=== PATIENT | female | born 1950 | race Caucasian/White ===

== ENCOUNTER 2016-12-16 17:54 | Observation (INO) | payer BC, OTHER ==
[~2016-12-16] VITALS: Ht 144.8 cm; Wt 62.2 kg
[~2016-12-16 17:54] MED LIST: ASCA500 PO; ASPI81TA28 PO; CALC-279 PO; CHOL100010 PO; CITA10TA4 PO; DIVA500T5 PO; LISI-461 PO; MAGN1CAP2 PO; MULT-506 PO; OMEGCAP2 PO; VITA400C15 PO; ZINC1TAB4 PO
--- NOTE | 2016-12-16 18:20 | DIAGNOSTIC IMAGING REPORT ---
CHEST ONE VIEW PORTABLE CLINICAL HISTORY: CHEST PAIN dyspnea COMPARISON STUDY: No previous studies for comparison. FINDINGS: The bones soft tissues and hemidiaphragms are normal. The cardiomediastinal silhouette is normal. The lungs are clear. The pulmonary vasculature is normal. IMPRESSION: Negative chest. Electronically signed by: Jacob Neumann M.D. 12/16/2016 6:18 PM Dictated Date/Time: 12/16/2016 6:18 PM
[2016-12-16 18:24] LABS: BASO % 0.3 %; BASO ABS # 0.03 K/uL (0-0.2); COMPLETE YES; EOS % 2.4 %; HEMATOCRIT 42.9 % (37-47); IG% 0.2 %; LYMPH % 32.3 %; LYMPH ABS # 3.14 K/uL (1.2-3.4); MEAN CELL VOLUME 87.2 fL (80-100); MEAN CORPUSCULAR HEMOGLOBIN 30.1 pg (25-34); MEAN CORPUSCULAR HGB CONC 34.5 g/dl (32-36); MEAN PLATELET VOLUME 9.2 fL (7.4-10.4); MONO % 10.4 %; NEUT % 54.4 %; PLATELET COUNT 220 K/uL (130-400); RED BLOOD COUNT 4.92 M/uL (4.2-5.4); WHITE BLOOD COUNT 9.73 K/uL (4.8-10.8)
--- NOTE | 2016-12-16 18:36 | EMERGENCY ROOM VISIT NOTE ---
History Report prepared by Eduin: Velia Lyn Under the Supervision of: Dr. iJmenez Cortés M.D. First contact with patient: 18:02 Chief Complaint: CHEST PAIN Stated Complaint: PAIN IN CHEST History of Present Illness The patient is a 66 year old female who presents to the Emergency Room with complaints of an episode of chest pain that occurred this morning at 5:15AM. Her pain woke her up from her sleep and lasted about an hour before resolving. The patient notes that her pain improved after she drank some water and sat up in bed. She did not have any other symptoms when her chest pain occurred. She has not had any difficulty with exertion recently. Past medical history includes hypertension. She is on Lisinopril. The patient's most recent stress test was over 10 years ago. She does not have a history of smoking. She is not diabetic. The patient notes an extensive family history of heart disease. Her mother also had a history of an aortic aneurysm. Pt denies LOC, headache, fevers, chills, diaphoresis, visual changes, neck pain, tearing pain radiating to the back, personal history or family history of pulmonary embolism, uncontrolled hypertension, breathing difficulties, leg swelling, coagulation abnormalities, prolonged travel, recent surgery or immobilization, nausea, vomiting, abdominal pain, melena, hematochezia, urinary symptoms, numbness, weakness, lymphadenopathy, rash, or other complaints. Source of History: patient Onset: this morning Position: chest Timing: resolved Review of Systems See HPI for pertinent positives and negatives. A total of ten systems were reviewed and were otherwise negative. Past Medical & Surgical Medical Problems: (1) Chest pain (2) Hypertension (3) Seizure disorder Family History Aneurysm Heart disease Social History Smoking Status: Never Smoker Marital Status: Housing Status: lives with significant other Occupation Status: retired Current/Historical Medications Scheduled Ascorbic Acid (Vitamin C), 1 TAB PO HS Aspirin (Aspirin Ec), 81 MG PO QAM Calcium Citrate-Vitamin D (Calcium Citrate + D), 1 TAB PO QAM Cholecalciferol (Vitamin D), 1,000 INTER.UNIT PO HS Citalopram Hydrobromide (Citalopram Hydrobromide), 1 TAB PO QAM Divalproex Sodium (Depakote Delay Rel), 500 MG PO BID Lisinopril (Zestril), 10 MG PO HS Magnesium Oxide (Mg Supplement (Magnesium), 1 CAP PO HS Multivitamin (Multivitamin), 1 TAB PO QAM [place]-3 Fatty Acids (Fish Oil), 1 CAP PO QAM Tocopheryl Acet,Dl-Alpha (Vitamin E), 400 INTER.UNIT PO HS Zinc Gluconate (Zinc), 1 TAB PO HS Allergies Coded Allergies: Morphine and Related (Verified Allergy, Unknown, GI UPSET, 12/16/16) Phenytoin (Verified Allergy, Unknown, RASH, 12/16/16) Sulfa Antibiotics (Verified Allergy, Unknown, UNKNOWN - HAPPENED A LONG TIME AGO, 12/16/16) Physical Exam Vital Signs Date Time Temp Pulse Resp B/P Pulse Ox O2 Delivery O2 Flow Rate FiO2 12/16/16 18:44 62 18 129/57 96 Room Air 12/16/16 18:33 64 12/16/16 17:55 36.6 72 20 185/82 97 Room Air Physical Exam GENERAL: Awake, alert, well-appearing, in no distress HENT: Normocephalic, atraumatic. Oropharynx unremarkable. EYES: Normal conjunctiva. Sclera non-icteric. NECK: Supple. No nuchal rigidity. FROM. No JVD. RESPIRATORY: Clear to auscultation. CARDIAC: Regular rate, normal rhythm. Extremities warm and well perfused. Pulses equal. ABDOMEN: Soft, non-distended. No tenderness to palpation. No rebound or guarding. No masses. RECTAL: Deferred. MUSCULOSKELETAL: Chest examination reveals no tenderness. The back is symmetrical on inspection without obvious abnormality. There is no CVA tenderness to palpation. No joint edema. LOWER EXTREMITIES: Calves are equal size bilaterally and non-tender. No edema. No discoloration. NEURO: Normal sensorium. No sensory or motor deficits noted. SKIN: No rash or jaundice noted. Medical Decision & Procedures ER Provider Diagnostic Interpretation: X-ray: Per my interpretation, radiologist review. CHEST ONE VIEW PORTABLE CLINICAL HISTORY: CHEST PAIN dyspnea COMPARISON STUDY: No previous studies for comparison. FINDINGS: The bones soft tissues and hemidiaphragms are normal. The cardiomediastinal silhouette is normal. The lungs are clear. The pulmonary vasculature is normal. IMPRESSION: Negative chest. Electronically signed by: Jacob Neumann M.D. 12/16/2016 6:18 PM Dictated Date/Time: 12/16/2016 6:18 PM Laboratory Results 12/16/16 18:15 Red Blood Count 4.92, Mean Corpuscular Volume 87.2, Mean Corpuscular Hemoglobin 30.1, Mean Corpuscular Hemoglobin Concent 34.5, Mean Platelet Volume 9.2, Neutrophils (%) (Auto) 54.4, Lymphocytes (%) (Auto) 32.3, Monocytes (%) (Auto) 10.4, Eosinophils (%) (Auto) 2.4, Basophils (%) (Auto) 0.3, Neutrophils # (Auto ) 5.30, Lymphocytes # (Auto) 3.14, Monocytes # (Auto) 1.01, Eosinophils # (Auto ) 0.23, Basophils # (Auto) 0.03 12/16/16 18:15 Test 12/16/16 18:15 12/16/16 18:18 White Blood Count 9.73 K/uL (4.8-10.8) Red Blood Count 4.92 M/uL (4.2-5.4) Hemoglobin 14.8 g/dL (12.0-16.0) Hematocrit 42.9 % (37-47) Mean Corpuscular Volume 87.2 fL (80-100) Mean Corpuscular Hemoglobin 30.1 pg (25-34) Mean Corpuscular Hemoglobin Concent 34.5 g/dl (32-36) Platelet Count 220 K/uL (130-400) Mean Platelet Volume 9.2 fL (7.4-10.4) Neutrophils (%) (Auto) 54.4 % Lymphocytes (%) (Auto) 32.3 % Monocytes (%) (Auto) 10.4 % Eosinophils (%) (Auto) 2.4 % Basophils (%) (Auto) 0.3 % Neutrophils # (Auto) 5.30 K/uL (1.4-6.5) Lymphocytes # (Auto) 3.14 K/uL (1.2-3.4) Monocytes # (Auto) 1.01 K/uL (0.11-0.59) Eosinophils # (Auto) 0.23 K/uL (0-0.5) Basophils # (Auto) 0.03 K/uL (0-0.2) RDW Standard Deviation 40.6 fL (36.4-46.3) RDW Coefficient of Variation 12.6 % (11.5-14.5) Immature Granulocyte % (Auto) 0.2 % Immature Granulocyte # (Auto) 0.02 K/uL (0.00-0.02) Anion Gap 8.0 mmol/L (3-11) Est Creatinine Clear Calc Drug Dose 53.7 ml/min Estimated GFR () 86.4 Estimated GFR (Non- 74.5 BUN/Creatinine Ratio 18.7 (10-20) Calcium Level 9.0 mg/dl (8.5-10.1) Total Bilirubin 0.2 mg/dl (0.2-1) Direct Bilirubin < 0.1 mg/dl (0-0.2) Aspartate Amino Transf (AST/SGOT) 15 U/L (15-37) Alanine Aminotransferase (ALT/SGPT) 23 U/L (12-78) Alkaline Phosphatase 78 U/L (45-117) Total Creatine Kinase 105 U/L (26-192) Creatine Kinase MB 3.0 ng/ml (0.5-3.6) Creatine Kinase MB Ratio 2.9 (0-3.0) Total Protein 7.7 gm/dl (6.4-8.2) Albumin 3.8 gm/dl (3.4-5.0) Lipase 222 U/L (73-393) Valproic Acid (Depakene) Level 101 mcg/ml (50-100) Bedside D-Dimer 126 ng/mlFEU (0-450) Bedside Troponin I 0.000 ng/ml (0-0.045) Laboratory results reviewed by me ECG Indication: chest pain Rate (beats per minute): 65 Rhythm: normal sinus Findings: no ectopy, other (poor R wave progression anteriorly) ED Course 1821: The patient was evaluated in room B5. A complete history and physical exam was performed. 1933: Upon reexamination, the patient was resting comfortably. I discussed the test results and treatment plan with the patient. The patient will be evaluated for further management. 1950: Ordered Aspirin 324 mg PO. []: I discussed the case with Dr. Adams - [facility] Hospitalist. The patient will be evaluated for further management. Medical Decision Triage Nursing notes reviewed. The patient's presentation and history were concerning for chest pain. Etiologies such as cardiac ischemia, aortic dissection, pulmonary embolism, pneumonia, pneumothorax, musculoskeletal, infections, gastrointestinal, as well as others were entertained. The patient was evaluated. Her history was concerning for the chest pain. She has a strong family history. ECG was negative. The patient underwent blood work and chest x-ray. These were negative. D-dimer was also negative. Given her history a cardiac workup was felt to be reasonable. A consultation was made with internal medicine. Patient was evaluated in the Emergency Room for further treatment. The patient was given aspirin. The chart was completed utilizing [employer] Speech voice recognition software. Grammatical errors, random word insertions, pronoun errors, and incomplete sentences are an occasional consequence of this system due to software limitations, ambient noise, and hardware issues. Any formal questions or concerns about the content, text, or information contained within the body of this dictation should be directly addressed to the physician for clarification. Consults Time Called: 1939 Consulting Physician: Dr. Adams I discussed the case with him. The patient will be evaluated for further management. Impression Primary Impression: Substernal chest pain Scribe Attestation The scribe's documentation has been prepared under my direction and personally reviewed by me in its entirety. I confirm that the note above accurately reflects all work, treatment, procedures, and medical decision making performed by me. Departure Information Dispostion Being Evaluated By Hospitalist Referrals Shea Boland DO (PCP) Patient Instructions My [facility]
[2016-12-16 18:40] LABS: ALT/SGPT 23 U/L (12-78); AST/SGOT 15 U/L (15-37); BLOOD UREA NITROGEN 16 mg/dl (7-18); BUN/CREATININE RATIO 18.7 (10-20); CARBON DIOXIDE 29 mmol/L (21-32); CHLORIDE 101 mmol/L (98-107); CREATININE 0.83 mg/dl (0.60-1.20); GLUCOSE 97 mg/dl (70-99); POTASSIUM 4.1 mmol/L (3.5-5.1); SODIUM 138 mmol/L (136-145)
[2016-12-16 18:45] LABS: ALKALINE PHOSPHATASE 78 U/L (45-117); CKMB/CK RATIO 2.9 (0-3.0)
[2016-12-16] MEDS ORDERED: ASPIRIN 81 MG CHEW PO STA (19:50)
[2016-12-16] MEDS ORDERED: ZOLPIDEM TARTRATE 5 MG TAB PO PRN (20:00)
[2016-12-16] MEDS ORDERED: POLYETHYLENE (MIRALAX) 17 GM PACK PO PRN (20:00)
[2016-12-16] MEDS ORDERED: ALUMINUM/MAGNESIUM/SIMETH (MAALOX MAX) 30 ML UDC PO PRN (20:00)
[2016-12-16] MEDS ORDERED: ACETAMINOPHEN 325 MG TAB PO PRN (20:00)
[2016-12-16] MEDS ORDERED: ONDANSETRON INJ 2 MG/ML 2 ML VIAL IV PRN (20:00)
[2016-12-16] MEDS ORDERED: NITROGLYCERIN 0.4 MG SL PER TAB CHARGE SL PRN (20:00)
[2016-12-16] MEDS ORDERED: MAGNESIUM HYDROXIDE SUSP 30 ML UDC PO PRN (20:00)
[2016-12-16] MEDS ORDERED: TRAMADOL HCL 50 MG TAB PO PRN (20:00)
[2016-12-16 20:12] VITALS: O2SAT 98
--- NOTE | 2016-12-16 20:14 | History and Physical ---
History & Physical Date & Time of Service: Dec 16, 2016 at 20:07 Chief Complaint: Pain In Chest Primary Care Physician: Shea Boland DO History of Present Illness Source: patient 66 y/o F Hx HTN, seizure disorder - presents with CP. Initially woke her from sleep at 5 am and then recurred intermittently with less severity throughout the day. Pain described as central, nonradiating, moderate. Denies N/V, diaphoresis, light head or palpitations. Past Medical/Surgical History Medical Problems: (1) Hypertension Status: Chronic (2) Seizure disorder Status: Chronic Family History Aneurysm Heart disease Noth parent with history of CAD and MIs in 60s Social History Smoking Status: Never Smoker Alcohol Use: none Marital Status: Occupational Status: retired Multi-Drug Resistant Organisms History of MDRO: No Allergies Coded Allergies: Morphine and Related (Verified Allergy, Unknown, GI UPSET, 12/16/16) Phenytoin (Verified Allergy, Unknown, RASH, 12/16/16) Sulfa Antibiotics (Verified Allergy, Unknown, UNKNOWN - HAPPENED A LONG TIME AGO, 12/16/16) Home Medications Scheduled Ascorbic Acid (Vitamin C), 1 TAB PO HS Aspirin (Aspirin Ec), 81 MG PO QAM Calcium Citrate-Vitamin D (Calcium Citrate + D), 1 TAB PO QAM Cholecalciferol (Vitamin D), 1,000 INTER.UNIT PO HS Citalopram Hydrobromide (Citalopram Hydrobromide), 1 TAB PO QAM Divalproex Sodium (Depakote Delay Rel), 500 MG PO BID Lisinopril (Zestril), 10 MG PO HS Magnesium Oxide (Mg Supplement (Magnesium), 1 CAP PO HS Multivitamin (Multivitamin), 1 TAB PO QAM [place]-3 Fatty Acids (Fish Oil), 1 CAP PO QAM Tocopheryl Acet,Dl-Alpha (Vitamin E), 400 INTER.UNIT PO HS Zinc Gluconate (Zinc), 1 TAB PO HS Review of Systems Constitutional: No chills, No fever, No sweats Eyes: No eye pain, No worsening of vision ENT: No hearing loss, No nasal symptoms, No unusual epistaxis Respiratory: No cough, No sputum, No wheezing Cardiovascular: + chest pain, No PND, No orthopnea Abdomen: No nausea, No pain, No vomiting Musculoskeletal: No joint pain, No muscle pain Genitourinary - Female: No dysuria, No hematuria, No urinary frequency, No urinary incontinence, No urinary retention, No urinary urgency Neurologic: No memory loss, No paralysis, No weakness Integumentary: No rash Allergic / Immunologic: No environmental allergies Physical Exam Vital Signs Date Time Temp Pulse Resp B/P Pulse Ox O2 Delivery O2 Flow Rate FiO2 12/16/16 18:44 62 18 129/57 96 Room Air 12/16/16 18:33 64 12/16/16 17:55 36.6 72 20 185/82 97 Room Air General Appearance: WD/WN, no apparent distress Head: normocephalic, atraumatic Eyes: normal inspection, PERRL, EOMI ENT: normal ENT inspection, pharynx normal Neck: supple, no JVD Respiratory/Chest: chest non-tender, lungs clear, normal breath sounds, no respiratory distress, no accessory muscle use Cardiovascular: regular rate, rhythm, no edema, no gallop, no JVD Abdomen/GI: normal bowel sounds, non tender, soft Back: normal inspection, no CVA tenderness Extremities/Musculoskelatal: normal inspection Neurologic/Psych: media aid II-XII nml as tested, no motor/sensory deficits, alert, normal mood/affect, normal reflexes, oriented x 3 Skin: normal color, warm/dry, no rash Diagnostics Laboratory Results Results Past 24 Hours Test 12/16/16 18:15 12/16/16 18:18 Range/Units White Blood Count 9.73 4.8-10.8 K/uL Red Blood Count 4.92 4.2-5.4 M/uL Hemoglobin 14.8 12.0-16.0 g/dL Hematocrit 42.9 37-47 % Mean Corpuscular Volume 87.2 80-100 fL Mean Corpuscular Hemoglobin 30.1 25-34 pg Mean Corpuscular Hemoglobin Concent 34.5 32-36 g/dl Platelet Count 220 130-400 K/uL Mean Platelet Volume 9.2 7.4-10.4 fL Neutrophils (%) (Auto) 54.4 % Lymphocytes (%) (Auto) 32.3 % Monocytes (%) (Auto) 10.4 % Eosinophils (%) (Auto) 2.4 % Basophils (%) (Auto) 0.3 % Neutrophils # (Auto) 5.30 1.4-6.5 K/uL Lymphocytes # (Auto) 3.14 1.2-3.4 K/uL Monocytes # (Auto) 1.01 0.11-0.59 K/uL Eosinophils # (Auto) 0.23 0-0.5 K/uL Basophils # (Auto) 0.03 0-0.2 K/uL RDW Standard Deviation 40.6 36.4-46.3 fL RDW Coefficient of Variation 12.6 11.5-14.5 % Immature Granulocyte % (Auto) 0.2 % Immature Granulocyte # (Auto) 0.02 0.00-0.02 K/uL Sodium Level 138 136-145 mmol/L Potassium Level 4.1 3.5-5.1 mmol/L Chloride Level 101 98-107 mmol/L Carbon Dioxide Level 29 21-32 mmol/L Anion Gap 8.0 3-11 mmol/L Blood Urea Nitrogen 16 7-18 mg/dl Creatinine 0.83 0.60-1.20 mg/dl Est Creatinine Clear Calc Drug Dose 53.7 ml/min Estimated GFR () 86.4 Estimated GFR (Non- 74.5 BUN/Creatinine Ratio 18.7 10-20 Random Glucose 97 70-99 mg/dl Calcium Level 9.0 8.5-10.1 mg/dl Total Bilirubin 0.2 0.2-1 mg/dl Direct Bilirubin < 0.1 0-0.2 mg/dl Aspartate Amino Transf (AST/SGOT) 15 15-37 U/L Alanine Aminotransferase (ALT/SGPT) 23 12-78 U/L Alkaline Phosphatase 78 45-117 U/L Total Creatine Kinase 105 26-192 U/L Creatine Kinase MB 3.0 0.5-3.6 ng/ml Creatine Kinase MB Ratio 2.9 0-3.0 Total Protein 7.7 6.4-8.2 gm/dl Albumin 3.8 3.4-5.0 gm/dl Lipase 222 73-393 U/L Valproic Acid (Depakene) Level 101 50-100 mcg/ml Bedside D-Dimer 126 0-450 ng/mlFEU Bedside Troponin I 0.000 0-0.045 ng/ml CXR normal EKG NSR Impression Assessment and Plan 6 y/o F Hx HTN, seizure disorder - presents with CP. Initially woke her from sleep at 5 am and then recurred intermittently with less severity throughout the day. Pain described as central, nonradiating, moderate. Denies N/V, diaphoresis, light head or palpitations. 1) CP - trop x 3 - NTG PRN, ASA - check lipid profile AM Consider inpt stress if pain recurs or schedule for outpt cardio f/u 2) HTN - cont Lisinopril 3) Seizure disorder - cont Depakote - has nit had a seizure in several yrs full code - Lovenox prophylaxis Total time for this admit including chart review , review of labs, meds, ekg, imaging - discussion with pt and ER attending - 29 min Level of Care Telemetry Resuscitation Status FULL RESUSCITATION VTE Prophylaxis VTE Risk Assessment Done? Y/N: Yes Risk Level: Low Given or contraindicated: Enoxaparin (Lovenox)SQ
[2016-12-16 20:41] VITALS: BP 163/67; PULSE 59; TEMP 36.4; O2SAT 98
[2016-12-16 20:49] VITALS: BP 163/67; PULSE 59; TEMP 36.4; Ht 144.8 cm; Wt 62.2 kg
[2016-12-16] MEDS ORDERED: LISINOPRIL 10 MG TAB PO SCH (21:00)
[2016-12-16] MEDS ORDERED: CHOLECALCIFEROL 1000 INTER.UNIT TAB PO SCH (21:00)
[2016-12-16] MEDS ORDERED: MAGNESIUM OXIDE 400 MG TAB PO SCH (21:00)
[2016-12-16] MEDS ORDERED: IV FLUIDS COMPLETED PRN (21:30)
[2016-12-16 21:42] LABS: PARTIAL THROMBOPLASTIN RATIO 1.1; PROTHROMBIN TIME (PATIENT) 10.5 SECONDS (9.0-12.0)
[2016-12-16] MEDS: DIVALPROEX SODIUM 500 MG DELAY RELEASE TAB PO SCH (22:11)
[2016-12-17] VITALS: BP 120/70; PULSE 66; TEMP 36.7; O2SAT 97
[2016-12-17 04:00] VITALS: BP 116/67; PULSE 65; TEMP 36.9; O2SAT 95
[2016-12-17 07:04] VITALS: BP 141/72; PULSE 62; TEMP 36.5; O2SAT 96
[2016-12-17] MEDS: DIVALPROEX SODIUM 500 MG DELAY RELEASE TAB PO SCH (07:35)
[2016-12-17] MEDS ORDERED: ASPIRIN/ALUM/MAGNES/CAL CARB 325 MG TAB PO SCH (09:00)
[2016-12-17] MEDS ORDERED: CITALOPRAM 20 MG TAB PO SCH (09:00)
[2016-12-17] MEDS ORDERED: ENOXAPARIN 40 MG/0.4 ML SYR SC SCH (09:00)
[2016-12-17] MEDS ORDERED: OMEGA-3 (PURIFIED FISH OIL) 1 GM CAP PO SCH (09:00)
--- NOTE | 2016-12-17 09:22 | Cardiology Consultation ---
Cardiology Consultation Date of Consultation: Dec 17, 2016. Requesting Physician: Dr. Hill Reason for Consultation: Chest discomfort Pt evaluation today including: conversation w/ patient, physical exam, lab review, review of studies, review of inpatient medication list, conversation w/ attending History of Present Illness This is a very pleasant 66-year-old woman who has a strong family history for heart disease but had not had any chest discomfort until the morning of presentation. She awoke on the morning of 12/16/2016 with a burning sensation in her epigastric area, this lasted about an hour and then resolved however she was left with a residual soreness in her lower rib cage. That was on and off for the day on 12/16/2016 and she presented to the emergency room. Initial evaluation was unremarkable, she was admitted and the symptoms have resolved. She denies having any epigastric or chest discomfort this morning. Her family history is notable for her brother recently having bypass surgery and he is in the 70s, both of her parents had myocardial infarctions in their 60s. She has a son treated for "heart disease" but it sounds as though that his treatment for hypercholesterolemia not documented heart disease. She does have a history of treated hypertension, she does not smoke area she did have a stress test perhaps 10 years ago. Past Medical/Surgical History Medical Problems: (1) Chest pain (2) Hypertension (3) Seizure disorder Family History Aneurysm Heart disease Social History Smoking Status: Never Smoker History of Alcohol Use: Yes (occasional) Review of Systems Constitutional: No fever, No weakness, No weight loss Respiratory: No cough, No dyspnea on exertion, No shortness of breath, No wheezing Cardiac: + see HPI, No PND, No chest pain, No edema, No orthopnea, No palpitations Abdomen: No GI bleeding, No diarrhea, No nausea, No pain, No vomiting Female : No problem reported Neurologic: No balance problems, No numbness/tingling, No paralysis, No weakness Heme: No abnormal bleeding/bruising, No clotting problems Endo: No fatigue Skin: No problem reported All Other Systems: Reviewed and Negative Allergies Coded Allergies: Morphine and Related (Verified Allergy, Unknown, GI UPSET, 12/16/16) Phenytoin (Verified Allergy, Unknown, RASH, 12/16/16) Sulfa Antibiotics (Verified Allergy, Unknown, UNKNOWN - HAPPENED A LONG TIME AGO, 12/16/16) Medications Current Inpatient Medications Medications (Trade) Dose Ordered Sig/Naeem Route Start Time Stop Time Status Last Admin Dose Admin Enoxaparin Sodium (Lovenox Inj) 40 mg Q24H SC 12/17/16 09:00 01/16/17 08:59 Acetaminophen (Tylenol Tab) 650 mg Q4H PRN PO 12/16/16 20:00 01/15/17 19:59 Al Hydrox/Mg Hydrox/Simethicone (Maalox Max Susp) 15 ml Q4H PRN PO 12/16/16 20:00 01/15/17 19:59 Magnesium Hydroxide (Milk Of Magnesia Susp) 30 ml Q12H PRN PO 12/16/16 20:00 01/15/17 19:59 Zolpidem Tartrate (Ambien Tab) 5 mg HSZ PRN PO 12/16/16 20:00 01/15/17 19:59 Ondansetron HCl (Zofran Inj) 4 mg Q6H PRN IV 12/16/16 20:00 01/15/17 19:59 Nitroglycerin (Nitrostat Tab) 0.4 mg UD PRN SL 12/16/16 20:00 01/15/17 19:59 Polyethylene (Miralax Powder Packet) 17 gm DAILY PRN PO 12/16/16 20:00 01/15/17 19:59 Aspirin/Aluminum/ Magnesium/Ca Carb (Ascriptin Tab) 325 mg DAILY PO 12/17/16 09:00 01/16/17 08:59 12/17/16 07:35 325 MG Tramadol HCl (Ultram Tab) 50 mg Q4H PRN PO 12/16/16 20:00 01/15/17 19:59 Cholecalciferol (Vitamin D Tab) 1,000 inter.unit HS PO 12/16/16 21:00 01/15/17 20:59 12/16/16 22:11 1,000 INTER.UNIT Divalproex Sodium (Depakote Delay Rel Tab) 500 mg BID PO 12/16/16 21:00 01/15/17 20:59 12/17/16 07:35 500 MG Lisinopril (Zestril Tab) 10 mg HS PO 12/16/16 21:00 01/15/17 20:59 12/16/16 22:10 10 MG Citalopram Hydrobromide (celeXA TAB) 10 mg QAM PO 12/17/16 09:00 01/16/17 08:59 12/17/16 07:35 10 MG Magnesium Oxide (Mag-Ox Tab) 400 mg HS PO 12/16/16 21:00 01/15/17 20:59 12/16/16 22:10 400 MG Fish Oil ([place]-3 (Purified Fish Oil) Cap) 1 gm QAM PO 12/17/16 09:00 01/16/17 08:59 12/17/16 07:35 1 GM Miscellaneous (Iv Fluids Completed) 1 ea PRN PRN N/A 12/16/16 21:30 12/16/17 21:29 Physical Exam Vital Signs Past 12 Hours Date Time Temp Pulse Resp B/P Pulse Ox O2 Delivery O2 Flow Rate FiO2 12/17/16 07:04 36.5 62 18 141/72 96 Room Air 12/17/16 04:00 36.9 65 18 116/67 95 Room Air 12/17/16 04:00 Room Air 12/17/16 00:00 36.7 66 20 120/70 97 Room Air 12/17/16 00:00 Room Air Constitutional: General Apperance: heathly-appearing Level of Distress: NAD Psychiatric: Mental Status: active & alert Head: normocephalic Eyes: EOM: EOMI ENMT: normal ENT inspection, hearing grossly normal Neck: supple, no masses Lungs: Respiratory effort: no dyspnea, good air movement Auscultation: breath sounds normal, no wheezing Cardiovascular: Heart Auscultation: RRR, no murmurs, no rubs, no gallops Peripheral Pulses: Bruits: none appreciated Abdomen: Bowel Sounds: normal Inspection & Palpation: soft, no tenderness, guarding & rebound, no masses Musculoskeletal: normal strength (5/5 throughout) Extremities: no edema Neurologic: Cranial Nerves: grossly intact Sensation: grossly intact Data Laboratory Results: Last 24 Hours Test 12/16/16 18:15 12/16/16 18:18 12/16/16 23:09 12/17/16 05:12 White Blood Count 9.73 K/uL Red Blood Count 4.92 M/uL Hemoglobin 14.8 g/dL Hematocrit 42.9 % Mean Corpuscular Volume 87.2 fL Mean Corpuscular Hemoglobin 30.1 pg Mean Corpuscular Hemoglobin Concent 34.5 g/dl Platelet Count 220 K/uL Mean Platelet Volume 9.2 fL Neutrophils (%) (Auto) 54.4 % Lymphocytes (%) (Auto) 32.3 % Monocytes (%) (Auto) 10.4 % Eosinophils (%) (Auto) 2.4 % Basophils (%) (Auto) 0.3 % Neutrophils # (Auto) 5.30 K/uL Lymphocytes # (Auto) 3.14 K/uL Monocytes # (Auto) 1.01 K/uL Eosinophils # (Auto) 0.23 K/uL Basophils # (Auto) 0.03 K/uL RDW Standard Deviation 40.6 fL RDW Coefficient of Variation 12.6 % Immature Granulocyte % (Auto) 0.2 % Immature Granulocyte # (Auto) 0.02 K/uL Prothrombin Time 10.5 SECONDS Prothromb Time International Ratio 1.0 Activated Partial Thromboplast Time 29.8 SECONDS Partial Thromboplastin Ratio 1.1 Sodium Level 138 mmol/L Potassium Level 4.1 mmol/L Chloride Level 101 mmol/L Carbon Dioxide Level 29 mmol/L Anion Gap 8.0 mmol/L Blood Urea Nitrogen 16 mg/dl Creatinine 0.83 mg/dl Est Creatinine Clear Calc Drug Dose 53.7 ml/min Estimated GFR () 86.4 Estimated GFR (Non- 74.5 BUN/Creatinine Ratio 18.7 Random Glucose 97 mg/dl Calcium Level 9.0 mg/dl Total Bilirubin 0.2 mg/dl Direct Bilirubin < 0.1 mg/dl Aspartate Amino Transf (AST/SGOT) 15 U/L Alanine Aminotransferase (ALT/SGPT) 23 U/L Alkaline Phosphatase 78 U/L Total Creatine Kinase 105 U/L Creatine Kinase MB 3.0 ng/ml Creatine Kinase MB Ratio 2.9 Total Protein 7.7 gm/dl Albumin 3.8 gm/dl Lipase 222 U/L Valproic Acid (Depakene) Level 101 mcg/ml Bedside D-Dimer 126 ng/mlFEU Bedside Troponin I 0.000 ng/ml Troponin I < 0.015 ng/ml < 0.015 ng/ml EKG: An electrocardiogram on arrival in the emergency room shows sinus rhythm with no acute changes but poor R-wave progression. A repeat electrocardiogram this morning shows sinus rhythm with normal R-wave progression. This difference is probably due to lead placement. Telemetry reviewed: Sinus rhythm, no significant arrhythmia. Assessment & Plan #1. Epigastric and chest discomfort: This is unlikely to be cardiac in nature, the duration is little bit long not to have any findings of cardiac enzymes or ECG changes and the symptoms are a little bit atypical. It may be GI or musculoskeletal. She has not had exertional symptoms. I think she should have a stress test, however I cautioned her that the stress test may be abnormal even if her symptoms are noncardiac in nature since she could have undiagnosed coronary artery disease. I think it would be reasonable however to do, by don't think it has to be done on an urgent basis this weekend. I believe it is safe for her to go home and I can arrange a follow-up stress test early in the week. I can't schedule that until Monday morning. I did caution her that if the symptoms recur she should come back in, at that point I would probably admit her and keep her here until we did the stress test. I would continue her aspirin 81 mg daily which she was taking prior to her admission. #2. Hypertension: She has a history of hypertension and her blood pressure has been somewhat labile here, often elevated. I would not keep her here for that but we can assess that with the stress test as well. Thank you for allowing me to participate in her care.
[2016-12-17] MEDS ORDERED: RANITAB6 PO (11:14)
--- NOTE | 2016-12-17 11:17 | Discharge Instructions ---
Discharge Instructions Admission Reason for Admission: Chest Pain Discharge Discharge Diagnosis / Problem: Noncardiac chest pain Discharge Goals Goal(s): Improve disease control, Therapeutic intervention Activity Recommendations Activity Limitations: resume your previous activity Lifting Limitations: none Exercise/Sports Limitations: none Shower/Bathe: no limitations . Instructions / Follow-Up Instructions / Follow-Up You were admitted with chest pain and it was determined that you did not have a heart attack. Cardiology saw you and recommended that you have a stress test as an outpatient in the near future. Please contact Dr. Pedraza's office to schedule this if you do not hear from that office early this week. Your pain may have been caused from acid indigestion and taking Zantac OTC as needed may help with this. You are advised to cut down on your caffeine intake, continue regular exercise, and not to lie down right after eating. Please follow up with tour PCP within 1 week as well. Current Hospital Diet Patient's current hospital diet: AHA Diet (Heart Healthy) Discharge Diet Recommended Diet: AHA Diet (Heart Healthy) Procedures Procedures Performed: Chest xray Pending Studies Studies pending at discharge: no Medical Emergencies . Who to Call and When: Medical Emergencies: If at any time you feel your situation is an emergency, please call 911 immediately. . Non-Emergent Contact Non-Emergency issues call your: Primary Care Provider Call Non-Emergent contact if: your pain is worsening, your pain is unusual for you, your pain is concerning you, you have any medication questions . . "Provider Documentation" section prepared by Brielle Hill. VTE Core Measure Inpt VTE Proph given/why not?: Enoxaparin (Lovenox)SQ
[2016-12-17 12:28] VITALS: BP 141/72; PULSE 62; TEMP 36.5; O2SAT 96
--- NOTE | 2016-12-17 20:32 | Discharge Summary ---
Discharge Summary Admission Date: Dec 16, 2016 at 19:58 Discharge Date: Dec 17, 2016 Discharge Disposition: Home Principal Diagnosis: Chest pain Problems/Secondary Diagnoses: HTN Seizure disorder GERD Procedures: CHEST ONE VIEW PORTABLE CLINICAL HISTORY: CHEST PAIN dyspnea COMPARISON STUDY: No previous studies for comparison. FINDINGS: The bones soft tissues and hemidiaphragms are normal. The cardiomediastinal silhouette is normal. The lungs are clear. The pulmonary vasculature is normal. IMPRESSION: Negative chest. Consultations: Cardiology Medication Reconciliation New Medications: Ranitidine Hcl (Zantac 150 Maximum Streng) 150 Mg Tab 1 TAB PO BID PRN for Heartburn for 30 Days, #60 TAB Continued Medications: Ascorbic Acid (Vitamin C) 500 Mg Tab 1 TAB PO HS Aspirin (Aspirin Ec) 81 Mg Tab 81 MG PO QAM Calcium Citrate-Vitamin D (Calcium Citrate + D) 1 Tab Tab 1 TAB PO QAM Cholecalciferol (Vitamin D) 1,000 Inter.unit Tab 1000 INTER.UNIT PO HS, TAB Citalopram Hydrobromide (Citalopram Hydrobromide) 10 Mg Tab 1 TAB PO QAM Divalproex Sodium (Depakote Delay Rel) 500 Mg Tab 500 MG PO BID Lisinopril (Zestril) 10 Mg Tab 10 MG PO HS, TAB Magnesium Oxide (Mg Supplement (Magnesium) 400 Mg Cap 1 CAP PO HS Multivitamin (Multivitamin) Tab 1 TAB PO QAM, TAB [place]-3 Fatty Acids (Fish Oil) 1 Cap Cap 1 CAP PO QAM Tocopheryl Acet,Dl-Alpha (Vitamin E) 400 Inter.unit Cap 400 INTER.UNIT PO HS, CAP Zinc Gluconate (Zinc) 100 Mg Tab 1 TAB PO HS Referrals At Discharge Follow up Referrals: Rheumatologist Referral - Within 1 Week with Jose Francisco Pedraza M.D. Family Practice Referral - Within 1 Week with Shea Boland, DO Discharge Exam Review of Systems: Constitutional: No fever Eyes: No problem reported ENT: No problem reported Respiratory: No dyspnea on exertion, No problem reported, No shortness of breath Cardiovascular: No chest pain, No edema Abdomen: No nausea, No pain, No vomiting Musculoskeletal: No problem reported Genitourinary - Female: No problem reported Neurologic: No problem reported Psychiatric: No problem reported Endocrine: No problem reported Hematologic / Lymphatic: No problem reported Integumentary: No problem reported Physical Exam: General Appearance: WD/WN, no apparent distress Eyes: normal inspection, sclerae normal ENT: hearing grossly normal Neck: trachea midline Respiratory/Chest: lungs clear, normal breath sounds, no respiratory distress, no accessory muscle use Cardiovascular: regular rate, rhythm, no edema, no gallop, no JVD, no murmur Abdomen / GI: normal bowel sounds, non tender, soft, no organomegaly, no pulsatile mass Extremities: normal inspection, no calf tenderness, normal capillary refill , no pedal edema Neurologic/Psychiatric: alert, normal mood/affect, oriented x 3 Skin: normal color, warm/dry, no rash Lymphatic: no adenopathy Hospital Course 66 y/o F Hx HTN, seizure disorder - presents with CP. Initially woke her from sleep at 5 am and then recurred intermittently with less severity throughout the day. Pain described as central, nonradiating, moderate, burning in nature. Denies N/V, diaphoresis, light head or palpitations. She does admit to having to take Pepto Bismol frequently for indigestion. She was brought in to rule out ACS. She had three negative sets of cardiac markers, normal ECGs. She was seen in consultation by Cardiology and was stable for discharge to have outpatient cardiac stress testing within the next 2-3 days. She will continue on her home BP med and ASA daily. Her chest pain may be related to acid reflux. She was recommended to decrease her caffeine intake, not lie down right after eating, and to take Zantac prn. Of note, her valproic acid level came back mildly elevated at 101. She was advised to follow up with her Neurologist about this. Total Time Spent: Greater than 30 minutes This includes examination of the patient, discharge planning, medication reconciliation, and communication with other providers. Discharge Instructions Please refer to the electronic Patient Visit Report (Discharge Instructions) for additional information. Follow-Up With Cardiology for stress testing 2-3 days With PCP within 1 week Additional Copies To Jose Francisco Pedraza M.D.; Shea Boland DO; Alejandra Stephens M.D.
== END 2016-12-17 12:56 | disposition home or self-care (01) ==
LOC: ENRESERVTM → ENRESERVDT → C.EDB 17:55 → C.2E 19:58
PROVIDERS: ADMIT Internal Medicine; ATTEND Family Medicine
DX: R07.89 Other chest pain (principal); R06.00 Dyspnea, unspecified; G40.909 Epilepsy, unspecified, not intractable, without status epilepticus; I10 Essential (primary) hypertension; I25.10 Atherosclerotic heart disease of native coronary artery without angina pectoris; J93.9 Pneumothorax, unspecified; K21.9 Gastro-esophageal reflux disease without esophagitis; Z82.49 Family history of ischemic heart disease and other diseases of the circulatory system

== ENCOUNTER → 2017-04-24 | Outpatient (CLI) | payer BC, OTHER | LOC: C.MAMM 11:38 | PROVIDERS: ATTEND Nurse Practitioner Family | DX: M85.80 Other specified disorders of bone density and structure, unspecified site (principal); M48.10 Ankylosing hyperostosis [Forestier], site unspecified; Z87.81 Personal history of (healed) traumatic fracture ==

== ENCOUNTER → 2017-05-24 | Outpatient (CLI) | payer BC, OTHER | END | disposition home or self-care (01) | LOC: C.LAB1850 09:38 | PROVIDERS: ATTEND Internal Medicine Rheumatology | DX: E55.9 Vitamin D deficiency, unspecified (principal) ==

== ENCOUNTER → 2017-06-28 | Outpatient (CLI) | payer BC, OTHER ==
[2017-06-28 17:19] LABS: HEMATOCRIT 40.3 % (37-47); MEAN CELL VOLUME 89.8 fL (80-100); MEAN CORPUSCULAR HEMOGLOBIN 29.8 pg (25-34); MEAN CORPUSCULAR HGB CONC 33.3 g/dl (32-36); MEAN PLATELET VOLUME 9.5 fL (7.4-10.4); PLATELET COUNT 240 K/uL (130-400); RED BLOOD COUNT 4.49 M/uL (4.2-5.4); WHITE BLOOD COUNT 7.71 K/uL (4.8-10.8)
[2017-06-28 17:39] LABS: BLOOD UREA NITROGEN 17 mg/dl (7-18); BUN/CREATININE RATIO 23.6 (10-20); CALCIUM 9.7 mg/dl (8.5-10.1); CARBON DIOXIDE 31 mmol/L (21-32); CHLORIDE 101 mmol/L (98-107); CREATININE 0.73 mg/dl (0.60-1.20); GLUCOSE 96 mg/dl (70-99); POTASSIUM 4.1 mmol/L (3.5-5.1); SODIUM 136 mmol/L (136-145)
[2017-06-28 17:49] LABS: THYROID STIMULATING HORMONE 0.966 uIu/ml (0.300-4.500)
[2017-06-29 07:35] LABS: ESTIMATED AVERAGE GLUCOSE 114 mg/dl; HA1C FLAG Normal (Normal)
== END | disposition home or self-care (01) ==
LOC: C.LABBFT 15:22
PROVIDERS: ATTEND Family Medicine
DX: I10 Essential (primary) hypertension (principal); R73.03 Prediabetes; M81.0 Age-related osteoporosis without current pathological fracture; E55.9 Vitamin D deficiency, unspecified; E01.2 Iodine-deficiency related (endemic) goiter, unspecified

== ENCOUNTER → 2017-07-18 | Outpatient (CLI) | payer BC, OTHER ==
[2017-07-18 18:19] LABS: CHOLESTEROL/HDL RATIO 3.1
== END | disposition home or self-care (01) ==
LOC: C.LABBFT 11:19
PROVIDERS: ATTEND Family Medicine
DX: I10 Essential (primary) hypertension (principal); R73.03 Prediabetes

== ENCOUNTER → 2017-07-29 | Outpatient (CLI) | payer BC, OTHER ==
[2017-07-29 11:29] LABS: ALT/SGPT 15 U/L (12-78); BLOOD UREA NITROGEN 20 mg/dl (7-18); BUN/CREATININE RATIO 23.2 (10-20); CALCIUM 9.3 mg/dl (8.5-10.1); CARBON DIOXIDE 29 mmol/L (21-32); CHLORIDE 100 mmol/L (98-107); CREATININE 0.87 mg/dl (0.60-1.20); GLUCOSE 83 mg/dl (70-99); POTASSIUM 4.4 mmol/L (3.5-5.1); SODIUM 135 mmol/L (136-145)
[2017-07-29 11:32] LABS: ALB/GLOB RATIO 0.9 (0.9-2); ALKALINE PHOSPHATASE 105 U/L (45-117); AST/SGOT 13 U/L (15-37)
== END | disposition home or self-care (01) ==
LOC: C.LABBC 09:04
PROVIDERS: ATTEND Nurse Practitioner Family
DX: I10 Essential (primary) hypertension (principal); R56.9 Unspecified convulsions

== ENCOUNTER → 2017-08-02 | Outpatient (CLI) | payer BC, OTHER | END | disposition home or self-care (01) | LOC: C.PAPS 16:41 | PROVIDERS: ATTEND Obstetrics & Gynecology | DX: Z12.4 Encounter for screening for malignant neoplasm of cervix (principal); Z78.0 Asymptomatic menopausal state ==

== ENCOUNTER → 2017-09-20 | Outpatient (CLI) | payer BC, OTHER ==
[2017-09-20 14:29] LABS: URINE APPEARANCE CLEAR (CLEAR); URINE BILIRUBIN NEG (NEG); URINE COLOR YELLOW; URINE EPITHELIAL CELL AUTO 20-30 /lpf (0-5); URINE NITRITE NEG (NEG); UROBILINOGEN NEG (NEG)
[2017-09-20 14:31] LABS: MANUAL MICROSCOPIC REQUIRED? NO; REVIEW REQ? NO
== END | disposition home or self-care (01) ==
LOC: C.LABSPEC 13:48
PROVIDERS: ATTEND Physician Assistant
DX: R39.9 Unspecified symptoms and signs involving the genitourinary system (principal); N94.9 Unspecified condition associated with female genital organs and menstrual cycle

== ENCOUNTER → 2017-09-22 | Outpatient (CLI) | payer BC, OTHER ==
--- NOTE | 2017-09-25 15:02 | MAMMOGRAPHY REPORT ---
BILATERAL DIGITAL SCREENING MAMMOGRAM WITH CAD: 09/22/2017 CLINICAL HISTORY: Routine screening. Patient has no complaints. TECHNIQUE: Current study was also evaluated with a Computer Aided Detection (CAD) system. Bilateral CC and MLO views were obtained. COMPARISON: Comparison is made to exams dated: 09/15/2016 mammogram, 09/14/2015 mammogram, 10/02/2014 ultrasound, 09/12/2014 mammogram, and 08/09/2013 mammogram - [facility]. BREAST COMPOSITION: The tissue of both breasts is heterogeneously dense, which may obscure small mas ses. FINDINGS: No suspicious masses, calcifications, or areas of architectural distortion are noted in ei ther breast. There has been no significant interval change compared to prior exams. Bilateral benign -appearing calcifications are not significantly changed. Bilateral asymmetries are stable. IMPRESSION: ACR BI-RADS CATEGORY 2: BENIGN There is no mammographic evidence of malignancy. A 1 year screening mammogram is recommended. The pa tient will receive written notification of the results. Approximately 10% of breast cancers are not detected with mammography. A negative mammographic report should not delay biopsy if a clinically suggestive mass is present. Chelsie Jiang M.D. /:09/22/2017 16:13:18 [employer]ospace [employer] Physician: yV BERMAN(Cristine)(Flori), [facility] letter sent: Normal 1/2 BI-RADS Code: ACR BI-RADS Category 2: Benign
== END | disposition home or self-care (01) ==
LOC: C.MAMM 10:26
PROVIDERS: ATTEND Nurse Practitioner Family
DX: Z12.31 Encounter for screening mammogram for malignant neoplasm of breast (principal)

== ENCOUNTER → 2018-01-03 | Outpatient (CLI) | payer BC, OTHER ==
--- NOTE | 2018-01-03 13:24 | DIAGNOSTIC IMAGING REPORT ---
L TIBIA/FIBULA 2 VIEWS ROUTINE CLINICAL HISTORY: Pain COMPARISON: None. DISCUSSION: No fractures or dislocations are visualized. No destructive lesions are evident. IMPRESSION: 1. No evidence of fracture 2. No destructive lesions are visualized Electronically signed by: Victor Hugo Murphy M.D. 01/03/2018 1:22 PM Dictated Date/Time: 01/03/2018 1:22 PM
--- NOTE | 2018-01-03 13:35 | DIAGNOSTIC IMAGING REPORT ---
LEFT ANKLE 3 VIEWS CLINICAL HISTORY: Left ankle pain. FINDINGS: 3 views of the left ankle are obtained. No prior studies are available for comparison at the time of dictation. The skeletal structures are osteopenic. No fracture is seen. The ankle mortise is intact. There are dorsal and plantar calcaneal enthesophytes. No joint effusion is identified. The overlying soft tissues are within normal limits. IMPRESSION: No acute bony abnormality is identified. Electronically signed by: Nuno Young M.D. 01/03/2018 1:34 PM Dictated Date/Time: 01/03/2018 1:22 PM
[2018-01-03 14:39] LABS: BASO % 0.2 %; BASO ABS # 0.02 K/uL (0-0.2); EOS % 2.2 %; EOS ABS # 0.18 K/uL (0-0.5); HEMATOCRIT 40.6 % (37-47); HEMOGLOBIN 13.7 g/dL (12.0-16.0); IG# 0.01 K/uL (0.00-0.02); MEAN CELL VOLUME 89.6 fL (80-100); MEAN CORPUSCULAR HEMOGLOBIN 30.2 pg (25-34); MEAN CORPUSCULAR HGB CONC 33.7 g/dl (32-36); MEAN PLATELET VOLUME 9.3 fL (7.4-10.4); MONO % 13.3 %; MONO ABS # 1.07 K/uL (0.11-0.59); NEUT % 48.2 %; NEUT ABS # 3.88 K/uL (1.4-6.5); PLATELET COUNT 230 K/uL (130-400); RED CELL DISTRIBUTION WIDTH CV 12.6 % (11.5-14.5); RED CELL DISTRIBUTION WIDTH SD 41.3 fL (36.4-46.3); WHITE BLOOD COUNT 8.06 K/uL (4.8-10.8)
[2018-01-03 15:03] LABS: URIC ACID 6.6 mg/dl (2.6-7.2)
[2018-01-05 11:42] LABS: ANA SCREEN TC 249X POSITIVE (NEGATIVE)
== END | disposition home or self-care (01) ==
LOC: C.RAD1850 12:57
PROVIDERS: ATTEND Nurse Practitioner Family
DX: M25.572 Pain in left ankle and joints of left foot (principal)

== ENCOUNTER → 2018-01-09 | Outpatient (CLI) | payer BC, OTHER | END | disposition home or self-care (01) | LOC: C.LAB1850 11:52 | PROVIDERS: ATTEND Nurse Practitioner Family | DX: M54.5 Low back pain (principal); M25.572 Pain in left ankle and joints of left foot ==

== ENCOUNTER → 2018-01-17 | Outpatient (CLI) | payer BC, OTHER ==
--- NOTE | 2018-01-17 12:51 | DIAGNOSTIC IMAGING REPORT ---
L WRIST MIN 3 VIEWS ROUTINE CLINICAL HISTORY: Left wrist pain COMPARISON: None. DISCUSSION: No fractures or dislocations are visualized. There are no erosive or destructive changes. IMPRESSION: No evidence of fracture. No evidence of erosive disease. Electronically signed by: Victor Hugo Murphy M.D. 01/17/2018 12:50 PM Dictated Date/Time: 01/17/2018 12:50 PM
--- NOTE | 2018-01-17 12:51 | DIAGNOSTIC IMAGING REPORT ---
R WRIST MIN 3 VIEWS ROUTINE CLINICAL HISTORY: PAIN, WRIST JOINT(719.43)(M25.539) pain COMPARISON: None. DISCUSSION: The bones and joint spaces appear intact. There is no evidence of fracture, dislocation or bony disease. There is no evidence for soft tissue swelling. IMPRESSION: Negative study. The above report was generated using voice recognition software. It may contain grammatical, syntax or spelling errors. Electronically signed by: Jacob Neumann M.D. 01/17/2018 12:50 PM Dictated Date/Time: 01/17/2018 12:50 PM
[2018-01-17 13:41] LABS: TRANSFERRIN 266 mg/dl (200-360)
[2018-01-20 04:56] LABS: ANA SCREEN TC 249X POSITIVE (NEGATIVE); ANTI-SS-A <1.0 NEG AI (<1.0 NEG); ANTI-SS-B <1.0 NEG AI (<1.0 NEG); COMPLEMENT C3 TC 44859W 125 MG/DL (90-180); COMPLEMENT C4 TC 44982E 28 MG/DL (16-47); PARVOVIRUS IgM INDEX 0.1 (<0.9)
== END | disposition home or self-care (01) ==
LOC: C.LAB1850 12:02
PROVIDERS: ATTEND Internal Medicine Rheumatology
DX: M25.531 Pain in right wrist (principal); R76.8 Other specified abnormal immunological findings in serum; M70.62 Trochanteric bursitis, left hip; M25.50 Pain in unspecified joint

== ENCOUNTER → 2018-06-04 | Outpatient (CLI) | payer BC, OTHER ==
[~2018-06-04] MED LIST changes: +DIVA-36 PO; -DIVA500T5 PO
--- NOTE | 2018-06-04 14:36 | DIAGNOSTIC IMAGING REPORT ---
CHEST 2 VIEWS ROUTINE CLINICAL HISTORY: J18.9 COMMUNITY ACQUIRED PNEUMONIA. COMPARISON STUDY: December 16, 2016 FINDINGS: The cardiac and mediastinal contours are normal. There is no evidence of focal pulmonary consolidation. There is no evidence of failure. No pleural effusions are visualized.[ IMPRESSION: No active disease in the chest. Electronically signed by: Victor Hugo Murphy M.D. 06/04/2018 2:34 PM Dictated Date/Time: 06/04/2018 2:34 PM
== END | disposition home or self-care (01) ==
LOC: C.RAD1850 14:21
PROVIDERS: ATTEND Nurse Practitioner Family
DX: J18.9 Pneumonia, unspecified organism (principal)